=== PATIENT | female | born 1955 | race Caucasian/White ===

== ENCOUNTER 2022-04-15 16:15 | Outpatient (RCR) | payer OTHER, SELFPAY | END 2023-03-10 11:15 | disposition home or self-care (01) | PROVIDERS: PCP Family Medicine; Visit Provider Student in an Organized Health Care Education/Training Program | DX: M65.4 Radial styloid tenosynovitis [de Quervain] (principal); Z51.89 Encounter for other specified aftercare | CPT/HCPCS: 97033; 97035; 97140 ==

== ENCOUNTER 2023-03-18 13:55 | Emergency (ER) | payer MEDICARE, SELFPAY ==
[2023-03-18 13:59] VITALS: BP 167/95; PULSE 87; RESP 16; TEMP 36.2; O2SAT 95; BMI 31.5
--- NOTE | 2023-03-18 14:09 | CRLHL7_ITS ---
For Patients: As a result of the Century Cures Act, medical imaging exams and procedure reports are released immediately into your electronic medical record. You may view this report before your referring provider. If you have questions, please contact your health care provider. Indication: Trauma. Technique: Right elbow, 2 views. Comparison: None. Findings: Bones: Transverse mildly impacted fracture of the neck of the proximal radius.. Joint spaces: Moderate joint effusion with sail sign.. Mild degenerative changes Soft tissues: Soft tissue swelling surrounding the elbow.. Impression: Fracture at the neck of the proximal radius. Dictated by Raissa Randhawa MD @ 03/18/2023 3:44:54 PM (Electronically Signed)
[2023-03-18] MEDS: ACETAMINOPHEN 500 MG TABLET 1000 MG PO (14:13)
--- NOTE | 2023-03-18 14:39 | ED_ITS ---
HPI - Fall General Chief Complaint: Fall/Minor Trauma Stated Complaint: Fall, R arm injury Time Seen by Provider: 03/18/23 13:58 History of Present Illness HPI Narrative: Patient is a 67-year-old woman who stumbled and fell in front of the [employer] [place] in [facility]. She fell landing on her right elbow and now is unable to flex or extend the elbow. Patient has severe pain located at the lateral aspect of the elbow joint. Patient has no skin breakdown. She has had no head or neck injuries. She did not lose consciousness. She has no history of any previous trauma to the elbow. Patient has no pain in the right shoulder or wrist. She has no neurologic numbness but has extreme pain in the right elbow. Related Data Home Medications Medication Instructions Recorded Confirmed hydroxyzine pamoate 25 mg capsule 25 mg PO 3XD 03/18/23 03/18/23 lisinopril 20 1 tab PO DAILY 03/18/23 03/18/23 mg-hydrochlorothiazide 12.5 mg tablet Allergies Allergy/AdvReac Type Severity Reaction Status Date / Time No Known Drug Allergies Allergy Verified 03/18/23 14:02 Review of Systems Status of ROS: Reports: 10 or more systems reviewed and unremarkable except as noted in History and below PFSH COUNTS INCLUDE 234 BEDS AT THE [facility] Social History Smoking Status: Never smoker How often do you have a drink containing alcohol: never AUDIT-C Alcohol total score: 0 Non-prescribed substance use: denies use Exam Narrative: Exam Narrative: EXAM GENERAL: Patient appears comfortable and well. No signs of trauma other than swelling noted in the right elbow. EYES: No scleral icterus. ENT: Tympanic membranes and oropharynx normal. THYROID: no thyroid nodules or thyromegaly. LYMPH: No supraclavicular or cervical lymphadenopathy. SKIN: Visible skin seen during exam normal or with benign process only. EXT: Markedly reduced range of motion in the right elbow with both flexion extension as well as supination. No neurologic defects. HEART: Regular rate and rhythm with no murmurs, rubs, or gallops. LUNGS: Clear to auscultation bilaterally with no crackles or wheezes. ABD: Soft, non tender, non distended. PSYCH: Good eye contact, speech is not pressured. Const: Vital Signs, click to edit/add: Vital Signs - 24 hr 03/18/23 13:59 Temperature 97.2 F L Pulse Rate [Left P ulse Oximeter] 87 Respiratory Rate 16 Blood Pressure [Le ft Upper Arm] 167/95 H Pulse Oximetry 95 Oxygen Delivery Me thod Room Air Course Course Hospital Course: Patient seen and examined. We did treated with oxycodone 5 in Tylenol 1000. X- ray pending. Vital Signs Vital signs: Initial Vital Signs Temperature 97.2 F L 03/18/23 13:59 Temperature Source Temporal Artery Scan 03/18/23 13:59 Pulse Rate 87 03/18/23 13:59 Respiratory Rate 16 03/18/23 13:59 Blood Pressure 167/95 H 03/18/23 13:59 Blood Pressure Mean 119 H 03/18/23 13:59 Blood Pressure Position Sitting 03/18/23 13:59 Pulse Oximetry 95 03/18/23 13:59 Oxygen Delivery Method Room Air 03/18/23 13:59 Vital Signs Temperature 97.2 F L 03/18/23 13:59 Pulse Rate 87 03/18/23 13:59 Respiratory Rate 16 03/18/23 13:59 Blood Pressure 167/95 H 03/18/23 13:59 Pulse Oximetry 95 03/18/23 13:59 Oxygen Delivery Method Room Air 03/18/23 13:59 Temperature 97.2 F L 03/18/23 13:59 Pulse Rate 87 03/18/23 13:59 Respiratory Rate 16 03/18/23 13:59 Blood Pressure 167/95 H 03/18/23 13:59 Pulse Oximetry 95 03/18/23 13:59 Oxygen Delivery Method Room Air 03/18/23 13:59 MDM - Fall MDM Narrative Medical decision making narrative: Patient is a 67-year-old woman who fell in [facility]. Upon my review of the x-ray she appears have radial head fracture minimally displaced. I did place her in a long-arm splint and placed her in a sling. She feels much better. She has no signs of compartment syndrome or neurovascular involvement. I did treat her with Percocet 1-2 every 4-6 as needed ibuprofen ice wearing the splint and follow up with Orthopedics. Differential diagnosis included elbow fracture elbow dislocation elbow sprain soft tissue injury Differential Diagnosis Differential diagnosis: Likely dislocation of shoulder region and fracture of wrist Discharge Plan Discharge Clinical Impression: Closed fracture of radial head Patient Disposition: Home, Self-Care Condition: Stable Instructions: Elbow Fracture (ED) Additional Instructions: Wear splint and sling Percocet as directed Motrin 600 mg 3 times a day as needed Ice Follow-up with orthopedics in 4-5 days. Activity Level: No Restrictions Discharge Diet: Regular Prescriptions: No Action lisinopril-hydrochlorothiazide 20-12.5 mg tablet 1 tab PO DAILY hydroxyzine pamoate 25 mg capsule 25 mg PO 3XD Follow Up/Referrals: EVELYNE SIMON DO [Primary Care Provider] - Stand Alone Forms: [employer] Info Instructions
[2023-03-18] MEDS: OXYCODONE 1 MG/ML ORAL SOLN 5 MG PO (14:40)
--- NOTE | 2023-03-18 14:57 | CRLHL7_ITS ---
For Patients: As a result of the Cures Act, medical imaging exams and procedure reports are released immediately into your electronic medical record. You may view this report before your referring provider. If you have questions, please contact your health care provider. Indication: Twisting injury Technique: Three views Comparison: None Findings/Impression: Bones: No evidence of fracture. Well-formed plantar heel spur. Joint spaces: No dislocation. Soft tissues: Mild lateral soft tissue swelling. Some calcification at the distal Achilles tendon, likely some enthesopathic calcification. Slight thickening of the distal Achilles tendon which can be seen in tendinosis. Dictated by Sean Ellington MD @ 03/18/2023 4:14:27 PM (Electronically Signed)
--- NOTE | 2023-03-18 14:57 | ED.NURSE ---
Pt was unable to ambulate due to pain when walking out of room to discharge. Pain reported in left leg. X-ray ordered by
== END 2023-03-18 15:29 | disposition home or self-care (01) ==
PROVIDERS: Emergency Provider Internal Medicine; PCP Student in an Organized Health Care Education/Training Program
DX: M25.572 Pain in left ankle and joints of left foot (principal); S52.131A Displaced fracture of neck of right radius, initial encounter for closed fracture; W01.0XXA Fall on same level from slipping, tripping and stumbling without subsequent striking against object, initial encounter
CPT/HCPCS: 29105; 73070; 73610; 99283; A9270

== ENCOUNTER 2023-06-16 16:00 | Outpatient (RCR) | payer MEDICARE, SELFPAY ==
--- NOTE | 2023-05-07 15:03 | OT.OPOE ---
OT Outpatient Ortho Eval OT Outpatient Ortho Eval* Start: 05/06/23 18:29 Freq: Status: Active Protocol: Document 05/07/23 07:15 AMB (Rec: 05/07/23 14:52 AMB [id number]) E-signed By Shruti Pedraza, OTR/L, CLT, QUILTING MACHINE HELPER OT OP Ortho Eval Details Complexity Complexity Medium Insurance Information Insurance Information Medicare B Outpatient History/Precautions Current Condition/Medical Diagnosis Referring Provider Dr Gutierrez Treatment Diagnosis RUE radial neck fx Date of Onset 03/18/23 Other Precautions Pt requires interpretor. Medical Conditions HTN Other Conditions Medications: Lisinopril- hydrochlorothiazide, hydroxyzine. PSH: History of hysterectomy (~2016 ) Z90.710 - Acquired absence of both cervix and uterus (ICD-10 ) History of phacoemulsification of cataract of right eye with intraocular lens implantation (04/22/16) Z98.41 - Cataract extraction status, right eye (ICD-10) Z96.1 - Presence of intraocular lens (ICD-10) History of phacoemulsification of cataract of left eye with intraocular lens implantation (05/06/16) Z98.42 - Cataract extraction status, left eye (ICD-10) Z96.1 - Presence of intraocular lens (ICD-10) Status post blepharoplasty of both eyes (10/21/16) Z98.890 - Other specified postprocedural states (ICD-10) Status post laparoscopic cholecystectomy (08/24/19) Z90.49 - Acquired absence of other specified parts of digestive tract (ICD-10) S/P right knee arthroscopy () Z98.890 - Other specified postprocedural states (ICD-10) S/P left knee arthroscopy () Z98.890 - Other specified postprocedural states (ICD-10) Medical/Functional History Medical History Reviewed Yes Prior Level of Function/Mobility Full, pain-free use of her RUE . Social History Employment Status [employer] Employed Hobbies Cooking [employer]itness Likes to walk Ortho Subjective Subjective Subjective Pt states she was walking near the [facility] in [facility] on y03/18/23 when she tripped and fell on her RUE sustaining the radial neck fx and also injuring her left ankle. Pt states she was in a splint but this was discontinued as she broke out in a rash, used her sling up until Wednesday when Dr Gutierrez told her she no longer needed it. Pt states her shoulder and hand seem to hurt more than her elbow on the RUE. Pt feels very stiff and feels like she can't use her left arm at all . Pt rates her pain at a 5-6/ 10 throughout her whole right arm, described as a dull ache but sometimes sharp in her shoulder. Pt is having great difficulty with lifting anything, especially cooking and cleaning, she is unable to reach into the cupboard, unable to write, and unable to open containers. Pt states she also has difficulty sleeping sometimes. Range of Motion and Strength Shoulder Range of Motion and Strength Shoulder Range of Motion and Strength 05/07/23 Significant limitations in AROM of the RUE shoulder. Flexion is 90, abd is 85, IR is 70, ER is 60. Measurements taken in seated. Elbow/Forearm Range of Motion and Strength Elbow/Forearm Range of Motion and 05/07/23 Significant Strength limitations in AROM of the RUE elbow / forearm. Flexion is 130, ext is full. Pronation and supination are WNL. Wrist Range of Motion and Strength Wrist Range of Motion and Strength 05/07/23 AROM of the RUE wrist flexion is 55, ext is 60, UD is 20, RD is 20. Measurements taken in seated. Hand/Finger/Thumb Range of Motion and Strength Hand/Finger/Thumb Range of Motion and 05/07/23 AROM of the RUE hand, Strength pt lacks 3.5cm from full composite fist when measured from the tip of the MF to DPC. Opposition is to tip of 5th digit. Goniometric Comments Goniometric Comments Goniometric Comments 05/07/23 Too early for MMT as pt has quite a lot of pain. Hand Pinch/Audio Engineer Strength Hand Right Audio Engineer Strength Position 1 (lbs) 5 Lateral Pinch Strength (lbs) 10 Three Point Pinch (lbs) 4 Left Audio Engineer Strength Position 1 (lbs) 54 Lateral Pinch Strength (lbs) 16 Three Point Pinch (lbs) 14 OT Objective Data Hand Hand Dominance Right Observations/Posture/Limb Appearance Objective Observations Pt demonstrates forward head and rounded shoulder posture, still quite protective of the RUE, fear of movement as she has pain. OT Problems Problems Problems Decreased Strength,Decreased Range of Motion,Pain,Lifting, Gripping,Pinching Other Problems Writing,Opening Containers, Dressing Patient Potential Good Assessment Assessment Assessment Pt is a very pleasant retired, [place] speaking female referred to OT secondary to significant limitations in RUE AROM and strength as well as pain. These impairments limit pt's ability to perform ADLS and IADLS, especially lifting/ reaching, gripping/holding/and lifting. She is not able to open containers, and is greatly limited in cooking and cleaning tasks. Pt will benefit from skilled OT intervention to address deficits and restore full, pain-free use of her RUE. Occupational Therapy Treatment Plan - OP Potential Rehabilitation Potential Good Barriers Barriers to goal attainment Pt relies on her daughter for transportation and is only able to attend OT 1x per week. Set Goals Goals Set with Patient Yes Goals Goals 1. Pt will be independent and compliant with HEP in order to resume full, pain-free use of the involved UE. 3 weeks 2. Pt will demonstrate full, pain-free AROM of the involved UE in order to improve ability to grasp and hold. 6 weeks 3. 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 8 weeks. Target Date 08/06/23 Treatment Plan Treatment Plan Evaluation,Edema Control,Joint Mobilization,Manual Therapy, Therapeutic Exercise, Therapeutic Activities,Self Care/Home Management,Education Expected Frequency 1-2x Week Expected Duration 6-8 Weeks Home Program Home Program Home Program Initiated Home Program Specifics Provided training and practice in HEP for AROM of the RUE shoulder, elbow /forearm, wrist, and hand. Also inst in shoulder rolls and scap retraction and proper posture. Following demo, pt is able to complete all exs with minimal cues. Pt was provided with [place] written instructions for use at home as well. Certification Certification I Certify That: Therapy Services Provided, Therapy Plan Established, Therapy Plan Reviewed Recertification Information Recertification Information Initial Certification Date 05/07/23 Recertification Due Date 08/05/23 Reasons to Continue Skilled Therapy Initiated skilled OT intervention to address RUE pain, weakness, and limited ROM secondary to radial neck fx with limited AROM, pain, and weakness impairing independence with ADLs and IADLs. Rehabilitation Potential Good Continued Plan of Care and Interventions Please see above Provider Signature Shows Agreement With POC & Medical Necessity Physician Comment/Change Comment or Changes Physician NPI Number #
== END 2023-10-14 23:59 | disposition home or self-care (01) ==
PROVIDERS: PCP Student in an Organized Health Care Education/Training Program; Visit Provider Orthopaedic Surgery
DX: S52.131A Displaced fracture of neck of right radius, initial encounter for closed fracture (principal); Z51.89 Encounter for other specified aftercare
CPT/HCPCS: 97110; 97140; 97166; 97535; T1013; X5282